=== PATIENT | male | born 1995 | race American Indian/Alaskan Native ===

== ENCOUNTER 2020-01-01 08:31 | Emergency (ER) | payer SELFPAY ==
--- NOTE | 2020-01-01 08:59 | Emergency Department Report ---
ED ENT HPI - General Chief complaint: Dental/Oral Stated complaint: LFT SIDE TOOTHACHE Time Seen by Provider: 01/01/20 08:54 Source: patient Mode of arrival: Ambulatory Limitations: No Limitations - History of Present Illness Initial comments: 24-year-old -[place] male presents to the emergency room complaining of a toothache. Patient states his been having this problem for about a year but has gotten worse in the last few days. Patient states now it feels like an abscess. Patient reports he been taking ibuprofen and Tylenol PM without much relief of pain. Patient denies any fever no sore throat no headache. Patient reports no past medical history currently has no known drug allergies and takes no medications on a daily basis MD complaint: tooth pain Onset/Timin -: week(s) Location: tooth # (19) Severity: severe Severity scale (0 -10): 10 Quality: aching, sharp Consistency: constant Improves with: none Worsens with: none Context- Dental: poor dental care Associated Symptoms: gum swelling, toothache - Related Data Previous Rx's Medication Instructions Recorded Last Taken Type Acetaminophen/Codeine [Tylenol 1 tab PO Q6H PRN 3 Days #12 tab 01/01/20 Unknown Rx /Codeine # 3 tab] Amoxicillin [Trimox CAP] 500 mg PO Q8H 10 Days #30 capsule 01/01/20 Unknown Rx Allergies Allergy/AdvReac Type Severity Reaction Status Date / Time No Known Allergies Allergy Unverified 01/01/20 08:35 ED Dental HPI - General Chief complaint: Dental/Oral Stated complaint: LFT SIDE TOOTHACHE Time Seen by Provider: 01/01/20 08:54 Source: patient Mode of arrival: Ambulatory Limitations: No Limitations - Related Data Previous Rx's Medication Instructions Recorded Last Taken Type Acetaminophen/Codeine [Tylenol 1 tab PO Q6H PRN 3 Days #12 tab 01/01/20 Unknown Rx /Codeine # 3 tab] Amoxicillin [Trimox CAP] 500 mg PO Q8H 10 Days #30 capsule 01/01/20 Unknown Rx Allergies Allergy/AdvReac Type Severity Reaction Status Date / Time No Known Allergies Allergy Unverified 01/01/20 08:35 ED Review of Systems ROS: Stated complaint: LFT SIDE TOOTHACHE Other details as noted in HPI Comment: All other systems reviewed and negative ED Past Medical Hx - Past Medical History Previous Medical History?: No - Surgical History Past Surgical History?: No - Social History Smoking Status: Never Smoker Substance Use Type: None - Medications Home Medications: Home Medications Medication Instructions Recorded Confirmed Last Taken Type Acetaminophen/Codeine [Tylenol 1 tab PO Q6H PRN 3 Days #12 tab 01/01/20 Unknown Rx /Codeine # 3 tab] Amoxicillin [Trimox CAP] 500 mg PO Q8H 10 Days #30 capsule 01/01/20 Unknown Rx ED Physical Exam - General Limitations: No Limitations General appearance: alert, in distress (Appears uncomfortable) - Head Head exam: Present: atraumatic, normocephalic - Eye Eye exam: Present: normal appearance - Expanded ENT Exam Expanded Teeth exam: Present: dental caries, dental tenderness # (19), gingival enlargement Throat exam: Positive: normal inspection - Neck Neck exam: Present: normal inspection, full ROM - Neurological Exam Neurological exam: Present: alert, oriented X3, normal gait - Psychiatric Psychiatric exam: Present: normal affect, normal mood - Skin Skin exam: Present: warm, dry, intact, normal color. Absent: rash ED Course Vital Signs 01/01/20 08:36 Temperature 98.4 F Pulse Rate 83 Respiratory 20 Rate Blood Pressure 141/75 O2 Sat by Pulse 100 Oximetry ED Medical Decision Making - Medical Decision Making 24-year-old -F[place] male presents to the emergency room complaining of a toothache. Patient states his been having this problem for about a year but has gotten worse in the last few days. Patient states now it feels like an abscess. Patient reports he been taking ibuprofen and Tylenol PM without much relief of pain. Patient denies any fever no sore throat no headache. Patient reports no past medical history currently has no known drug allergies and takes no medications on a daily basis. Patient appears to have a dental abscess. Will place him on amoxicillin 500 mg 3 times a day for 10 days. As well as Tylenol 3 and to continue the ibuprofen. Patient is encouraged to follow-up with a dentist. Critical care attestation.: If time is entered above; I have spent that time in minutes in the direct care of this critically ill patient, excluding procedure time. ED Disposition Clinical Impression: Dental abscess Disposition: TO HOME OR SELFCARE Is pt being admited?: No Does the pt Need Aspirin: No Condition: Stable Instructions: Dental Abscess (ED) Additional Instructions: Complete antibiotics as prescribed. Use Tylenol 3 for pain management with ibuprofen 600 mg [id number]. Please do not operate heavy machinery while taking Tylenol 3. It is very important for you to follow-up with the dentist I have listed several below for your convenience. Prescriptions: Amoxicillin [Trimox CAP] 500 mg PO Q8H 10 Days #30 capsule Acetaminophen/Codeine [Tylenol /Codeine # 3 tab] 1 tab PO Q6H PRN 3 Days #12 tab PRN Reason: Pain , Severe (7-10) Referrals: PRIMARY CARE,MD [Primary Care Provider] - 3-5 Days [facility] [Outside] - 3-5 Days [facility] [Outside] - 3-5 Days [facility] [Outside] - 3-5 Days Forms: Work/School Release Form(ED)
[2020-01-01 09:05] VITALS: BP 141/75
== END 2020-01-01 09:07 | disposition home or self-care (01) ==
LOC: ED 08:31
DX: K02.9 Dental caries, unspecified (principal); Z79.899 Other long term (current) drug therapy
CPT/HCPCS: 99282